=== PATIENT | male | born 1975 | race Caucasian/White ===

== ENCOUNTER → 2017-01-25 | Day surgery (SDC) | payer BC ==
[~2017-01-25] MED LIST: IV RINGERS,LACTATED 1000ML 1,000 ML IV; PROPOFOL 20 ML IV
== END | disposition home or self-care (01) ==
LOC: SURG 07:10
DX: K22.70 Barrett's esophagus without dysplasia (principal); K29.50 Unspecified chronic gastritis without bleeding; F32.9 Major depressive disorder, single episode, unspecified; Z98.890 Other specified postprocedural states
CPT/HCPCS: 43239; 88305; J2704